=== PATIENT | female | born 1965 | race Caucasian/White ===

== ENCOUNTER 2020-11-11 02:15 | Emergency (ER) | payer MEDICAID, SELFPAY ==
[~2020-11-11] VITALS: Ht 167.6 cm; Wt 68.0 kg
[2020-11-11 02:15] VITALS: BP 191/120
[2020-11-11] MEDS: hydrALAZINE 20 MG/ML VIAL IM ONE (02:47)
[2020-11-11] MEDS: diphenhydrAMINE 50 MG/ML VIAL IM ONE (02:48)
[2020-11-11 02:59] LABS: BASOPHILS % (AUTO) 0.3 % (0.0-2.0); EOSINOPHILS # (AUTO) 0.2 K/uL (0-0.4); EOSINOPHILS % (AUTO) 1.6 % (0.0-4.0); HEMATOCRIT 39.8 % (36-48); HEMOGLOBIN 13.4 g/dL (12.0-16.0); LYMPHOCYTES # (AUTO) 2.3 K/uL (2.5-16.5); LYMPHOCYTES % (AUTO) 19.5 % (20.5-51.1); MEAN CORPUSCULAR HEMOGLOBIN 30 pg (27-31); MEAN CORPUSCULAR HGB CONC 34 g/dL (33-37); MEAN CORPUSCULAR VOLUME 89.7 fL (80-94); MONOCYTES # (AUTO) 0.6 K/uL (0.8-1.0); MONOCYTES % (AUTO) 5.5 % (1.7-9.3); NEUTROPHILS # (AUTO) 8.6 K/uL (1.8-7.7); NEUTROPHILS % (AUTO) 73.1 % (42.2-75.2); PLATELET COUNT (AUTO) 302 K/uL (140-450); RED BLOOD CELL COUNT(AUTO) 4.44 MIL/uL (4.20-5.40); RED CELL DISTRIBUTION WIDTH 13.1 % (11.6-13.7); WHITE BLOOD COUNT (AUTO) 11.8 K/uL (4.8-10.8)
[2020-11-11 03:21] LABS: ALBUMIN 3.8 g/dL (3.4-5.0); ANION GAP 8.9 (8-16); CARBON DIOXIDE 30.3 mmol/L (21-32); CREATININE 0.9 mg/dL (0.6-1.3); POTASSIUM 3.2 mmol/L (3.5-5.1); TOTAL BILIRUBIN 0.2 mg/dL (0.0-1.0)
[2020-11-11] MEDS: NITROGLYCERIN 0.4 MG TAB SL ONE (03:55)
[2020-11-11] MEDS ORDERED: MORPHINE SULFATE 4 MG/ML SYR IVP ONE (04:20)
[2020-11-11] MEDS ORDERED: ONDANSETRON 4 MG/2 ML VIAL IVP ONE (04:20)
[2020-11-11] MEDS ORDERED: ASPIRIN 325 MG TAB PO ONE (04:20)
[2020-11-11] MEDS ORDERED: ONDANSETRON 4 MG/2 ML VIAL ONE (04:32)
[2020-11-11] MEDS ORDERED: ATROPINE 1 MG/10 ML SYR IVP ONE (04:47)
[2020-11-11] MEDS: ATROPINE 1 MG/10 ML SYR IVP ONE (04:56)
[2020-11-11] MEDS: ASPIRIN 325 MG TAB PO ONE (04:59)
[2020-11-11] MEDS: ONDANSETRON 4 MG/2 ML VIAL IVP ONE (05:00)
[2020-11-11] MEDS: MORPHINE SULFATE 4 MG/ML SYR IVP ONE (05:01)
[2020-11-11] MEDS ORDERED: OSC500 PO (05:08)
[2020-11-11] MEDS: NACL 0.9% 1,000 ML IV SCH (05:29)
[2020-11-11] MEDS ORDERED: HEPARIN PER PHARMACY MC PRN (06:40)
[2020-11-11] MEDS ORDERED: hePARIN / DEXT 5% PREMIX 250 ML IV SCH (07:25)
[2020-11-11] MEDS: hePARIN / DEXT 5% PREMIX 250 ML IV ONE (07:50)
[2020-11-11] MEDS ORDERED: ENOXAPARIN 80 MG/0.8 ML SYR SUBQ SCH (09:00)
[2020-11-11 14:56] VITALS: BP 144/102
== END 2020-11-11 14:56 | disposition designated cancer center or children's hospital (05) ==
LOC: MED 02:15 → MTU 04:46 → UNDOADMIN 04:46 → MTU 06:40 → MED 14:56
DX: I21.4 Non-ST elevation (NSTEMI) myocardial infarction (principal); Z79.899 Other long term (current) drug therapy; Z20.822 Contact with and (suspected) exposure to COVID-19
CPT/HCPCS: 36415; 70490; 71045; 80053; 84484; 85025; 85730; 87426; 93005; 96361; 96365; 96366; 96372; 96375; 96376; 99291; J0360; J0461; J1200; J1644; J2270; J2405; J7030